=== PATIENT | female | born 1985 | race Hispanic/Latino ===

== ENCOUNTER 2018-05-24 09:09 | Outpatient (CLI) | payer OTHER ==
--- NOTE | 2018-05-24 10:01 | MMO ---
Bilateral MAMMO Bilat Diag [facility]. CLINICAL HISTORY: Patient is 32 years old and is seen for diagnostic exam and lump or thickening in the left breast at 9 o'clock. The patient has no family history of breast cancer. The patient has no personal history of cancer. VIEWS: The views performed were: bilateral craniocaudal with tomosynthesis; bilateral mediolateral oblique with tomosynthesis; bilateral mediolateral; and bilateral exaggerated craniocaudal. FILMS COMPARED: The present examination has been compared to a prior imaging study performed at [facility] on 05/24/2018. MAMMOGRAM FINDINGS: The breasts are extremely dense, which may lower the sensitivity of mammography. There are no concerning mammographic or sonographic abnormalities in the area of palpable concern. The patient is referred back to her clinician. Negative imaging findings should not preclude biopsy if clinical findings are suspicious. There are no suspicious masses, suspicious calcifications, or new areas of architectural distortion. IMPRESSION: THERE ARE NO CONCERNING MAMMOGRAPHIC OR SONOGRAPHIC ABNORMALITIES IN THE AREA OF PALPABLE CONCERN. THE PATIENT IS REFERRED BACK TO HER CLINICIAN. NEGATIVE IMAGING FINDINGS SHOULD NOT PRECLUDE BIOPSY IF CLINICAL FINDINGS ARE SUSPICIOUS. A ROUTINE FOLLOW-UP MAMMOGRAM AT AGE 41 IS RECOMMENDED. THE RESULTS OF THIS EXAM WERE SENT TO THE PATIENT. ACR BI-RADS Category 2 - Benign finding MAMMOGRAPHY NOTE: 1. A negative mammogram report should not delay a biopsy if a dominant of clinically suspicious mass is present. 2. Approximately 10% to 15% of breast cancers are not detected by mammography. 3. Adenosis and dense breasts may obscure an underlying neoplasm.
--- NOTE | 2018-05-24 11:24 | ULT ---
LIMITED LEFT BREAST ULTRASOUND: DATE: 05/24/2018. PROVIDED CLINICAL HISTORY: Left breast lump. FINDINGS: Limited sonographic interrogation of the left breast was performed in the region of palpable concern. A 4 mm simple cyst is seen at the 10 o'clock position of the left breast. The interrogated portion s of the left breast at the 9 and 10 o'clock positions appear otherwise sonographically normal. IMPRESSION: BIRADS category 2 - benign findings. Negative or benign radiographic findings should not preclude fu rther evaluation of a clinically suspicious finding. The patient is referred back to her clinician. POS: OFF
== END 2018-05-24 09:10 | disposition home or self-care (01) ==
LOC: BICMAMMO 09:09
PROVIDERS: ATTEND Obstetrics & Gynecology
DX: N63.20 Unspecified lump in the left breast, unspecified quadrant (principal)
CPT/HCPCS: 77066; G0279